=== PATIENT | female | born 1935 | race Caucasian/White ===

== ENCOUNTER 2017-03-14 22:10 | Emergency (ER) | payer MEDICARE ==
[2017-03-14] MEDS ORDERED: NS 0.9% 1000 ML* 1,500 ML IV ONE (23:35)
[2017-03-15 00:46] LABS: Hematocrit 39 % (35-47); Mean Corpuscular HGB Conc 33 g/dl (31-36); Mean Corpuscular Hemoglobin 30 pg (27-31); Mean Corpuscular Volume 92 fL (80-97); Mean Platelet Volume 9 um3 (7.4-10.4); Red Blood Count 4.29 10^6/ul (4.0-5.4); Red Cell Distribution Width 15 % (10.5-15); White Blood Count 8.9 10^3/ul (3.5-10.8)
[2017-03-15 00:52] LABS: Albumin 3.9 g/dL (3.2-5.2); BUN/Creatinine Ratio 27.1 (8-20); Calcium 9.1 mg/dL (8.6-10.3); EGFR African American 103.3 (>60); EGFR Non-African American 80.3 (>60); Globulin 3.1 g/dL (2-4); Potassium 3.6 mmol/L (3.5-5.0)
[2017-03-15 00:53] LABS: Troponin I 0.01 ng/mL (<0.04)
[2017-03-15 01:48] LABS: Urine Bacteria Absent (Absent); Urine Bilirubin Negative (Negative); Urine Glucose Negative (Negative); Urine Nitrite Negative (Negative)
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
[2017-03-15 03:25] VITALS: BP 175/77
--- NOTE | 2017-03-15 07:57 | RAD ---
INDICATION: Fever. COMPARISON: Comparison is made with a prior chest x-ray study from January 03, 2014. TECHNIQUE: A portable view of the chest was obtained. FINDINGS: There is moderate enlargement of cardiac silhouette which has increased slightly in size from the prior exam. The lungs are hyperinflated and clear. No pleural effusion is seen. IMPRESSION: 1. MODERATE ENLARGEMENT OF THE CARDIAC [place] SLIGHTLY INCREASED IN SIZE FROM THE PRIOR EXAM. 2. FINDINGS CONSISTENT WITH COPD, NO EVIDENCE FOR ACUTE FINDING.
== END 2017-03-15 03:25 | disposition home or self-care (01) ==
LOC: ED 22:10
DX: R50.9 Fever, unspecified (principal); R53.1 Weakness; R53.83 Other fatigue
CPT/HCPCS: 36415; 71010; 80053; 81003; 81015; 83605; 84484; 85025; 85610; 85730; 87040; 87086; 87502; 93005; 96360; 99284

== ENCOUNTER 2017-03-15 09:24 | Observation (INO) | payer MEDICARE ==
[2017-03-15] MEDS ORDERED: NS 0.9% 1000 ML* 1,000 ML IV ONE (09:51)
[2017-03-15] MEDS ORDERED: Acetaminophen TAB* 325 MG PO ONE (09:51)
[2017-03-15 10:07] LABS: Hematocrit 43 % (35-47); Hemoglobin 14.2 g/dl (12.0-16.0); Mean Corpuscular HGB Conc 33 g/dl (31-36); Mean Corpuscular Hemoglobin 30 pg (27-31); Mean Corpuscular Volume 91 fL (80-97); Mean Platelet Volume 8 um3 (7.4-10.4); Red Blood Count 4.68 10^6/ul (4.0-5.4); Red Cell Distribution Width 15 % (10.5-15); White Blood Count 7.3 10^3/ul (3.5-10.8)
[2017-03-15 10:23] LABS: Albumin 4.1 g/dL (3.2-5.2); BUN/Creatinine Ratio 17.9 (8-20); C Reactive Protein 22.13 mg/L (< 5.00); Calcium 9.3 mg/dL (8.6-10.3); EGFR African American 108.6 (>60); EGFR Non-African American 84.5 (>60); Globulin 3.3 g/dL (2-4); Potassium 3.4 mmol/L (3.5-5.0); Total Bilirubin 1.1 mg/dL (0.2-1.0); Total Protein 7.4 g/dL (6.4-8.9)
[2017-03-15 10:25] LABS: Troponin I 0.03 ng/mL (<0.04)
[2017-03-15 11:07] LABS: Erythrocyte Sed Rate 31 mm/Hr (0-40)
[2017-03-15 11:30] LABS: Urine Bacteria Absent (Absent); Urine Bilirubin Negative (Negative); Urine Glucose Negative (Negative); Urine Nitrite Negative (Negative)
[2017-03-15] MEDS ORDERED: NS 0.9% 1000 ML* 1,000 ML IV SCH (15:00)
[2017-03-15] MEDS ORDERED: Hydrocortisone 1% CREAM* 30 GM TUBE TOPICAL PRN (16:20)
[2017-03-15] MEDS ORDERED: Latanoprost 0.005%* 2.5 ml BTL BOTH EYES SCH (18:00)
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
[2017-03-15] MEDS: Heparin VIAL(*) 5000 UNITS/ML VIAL (FIVE THOUSAND) SUBCUT SCH (21:31)
[2017-03-16] MEDS ORDERED: amLODIPine TAB* 5 MG ONE (04:00)
[2017-03-16] MEDS: amLODIPine TAB* 5 MG PO SCH ×2 (04:05→09:24)
[2017-03-16] MEDS: Heparin VIAL(*) 5000 UNITS/ML VIAL (FIVE THOUSAND) SUBCUT SCH ×2 (05:12→15:01)
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
[2017-03-16] MEDS ORDERED: Acetaminophen TAB* 325 MG PO PRN (08:10)
[2017-03-16] MEDS ORDERED: Ascorbic Acid TAB* 500 MG PO SCH (09:00)
[2017-03-16 10:26] VITALS: BP 183/80
--- NOTE | 2017-03-16 15:30 | PN ---
Progress Note - Progress Note Note: Patient doing well this afternoon. She has had no fever and no complaints. She has ambulated with nursing staff independently. Reviewed with patient's partner and son. Discharge to [place].
--- NOTE | 2017-03-17 08:02 | DS ---
HOSPITAL MEDICINE DISCHARGE SUMMARY: DATE OF ADMISSION: 03/15/17 DATE OF DISCHARGE: 03/16/17 PRIMARY CARE PHYSICIAN: Dr. Kriss Renteria. ATTENDING PHYSICIAN: Dr. Navneet Lockhart *(dictation provided by Chelsy Romero NP ). PRIMARY DIAGNOSES: 1. Fever with suspected acute viral illness. 2. Hypertension. SECONDARY DIAGNOSES: 1. History of dementia. 2. Traumatic subarachnoid hemorrhage. 3. Status post cataract extraction. MEDICATIONS: New medications are amlodipine 2.5 mg p.o. daily. Otherwise she will take: 1. Citrucel 500 mg oral daily. 2. Folic acid 5 mg oral daily. 3. Vitamin C and E 1 capsule daily. 4. [place]-3 one capsule daily. 5. Vitamin D 1000 units oral daily. 6. Vitamin B12 1000 mcg oral daily. 7. Vitamin C 500 mg oral daily. 8. Lumigan 0.01% one drop in both eyes every morning. 9. Pantothenic acid 500 mg oral daily/ 10. Alpha-lipoic acid 200 mg oral daily. HOSPITAL COURSE: Ms. Fraser is an 81-year-old female with past medical history as mentioned above who presented to the hospital on 03/15/17 with concern for fever, fatigue, and generalized malaise. Please see the dictated H and P from Nicole Fernandez for complete details. In brief, the patient had 2 days ' of not feeling well with fever and malaise. In the emergency room she had normal urinalysis. She had no leukocytosis. Her ESR was normal. Flu swab was negative. Chest x-ray done the day before was normal, without acute abnormality. Ms. Fraser was observed in the hospital overnight. She was given intravenous fluids. She has had no further complaints. She has had no fever. No chills. She has been ambulating on the unit easily. She has had no nausea or abdominal pain. She has been eating and tolerating food well. I suspect that she had an acute viral illness as no other etiology was identified. She will be going back to [place] today. During this hospitalization Ms. Fraser's blood pressure was quite elevated. It was running 170s to 180s systolically. I have started her on a very low dose of amlodipine at 2.5 mg oral daily, given her age and frailty. She can follow up with Dr. Kriss Renteria regarding adjustment of this as needed. DISPOSITION: To [place]. DIET: Regular. ACTIVITY: As tolerated. FOLLOWUP PLANS: Please follow up with Dr. Renteria. The patient is instructed to call early next week for any appointment per routine after this hospitalization. TIME SPENT: Approximately 60 minutes were spent in discharge of this patient, more than half the time spent with the patient at the bedside reviewing the events leading up to this hospitalization, performing the physical examination, and reviewing the plan of care. CHELSY ROMERO NP CC: Dr. Kriss Renteria.* [id number]/[facility] #: [id number] MTDLauren
== END 2017-03-16 16:00 | disposition home or self-care (01) ==
LOC: ED 09:24 → MED 12:03
PROVIDERS: ADMIT Hospitalist; ATTEND Internal Medicine
DX: R50.9 Fever, unspecified (principal); R53.83 Other fatigue; R53.1 Weakness; R42 Dizziness and giddiness; R51 Headache; I10 Essential (primary) hypertension; E24.9 Cushing's syndrome, unspecified; F03.90 Unspecified dementia, unspecified severity, without behavioral disturbance, psychotic disturbance, mood disturbance, and anxiety; Z79.899 Other long term (current) drug therapy
CPT/HCPCS: 36415; 80053; 81003; 83605; 83880; 84484; 85025; 85384; 85610; 85652; 85730; 86140; 87040; 87077; 87150; 87205; 87502; 96360; 96361; 96372; 99284; A9270-GY; G0378; G8978-GP-CJ; G8979-GP-CI; J1644

== ENCOUNTER 2017-03-17 17:51 | Inpatient (IN) | payer MEDICARE ==
--- NOTE | 2017-03-15 22:38 | HP ---
HISTORY AND PHYSICAL: DATE OF ADMISSION: 03/15/17 PRIMARY CARE PROVIDER: Dr. Kriss Renteria. ATTENDING PHYSICIAN: Dr. Nba Gordon* (dictated by Nicole Cormier NP). CHIEF COMPLAINT: Fever, fatigue, and general weakness. HISTORY OF PRESENT ILLNESS: Ms. Fraser is an 81-year-old female with past medical history significant for traumatic subdural subarachnoid hematoma and dementia who presented to the emergency room with complaints of fever, fatigue, and generalized weakness. The patient was previously seen last night in the emergency room with similar complaints of fever, fatigue, generalized weakness, and increased flatus. She presented from [place] with her significant other. She had a chest x-ray showing no acute findings. She was noted to have a temperature of 100.9. Her labs were unremarkable. The patient was discharged to home after receiving IV fluids with recommendations to follow up with her primary care provider. The patient denies any chills, chest pain, cough, shortness of breath, nausea, vomiting, and diarrhea. The patient reports having dizziness with dancing earlier in the week. She also reports new urinary urgency with some incontinence. The patient's significant other reports that over the last several days, she has had a rash on her back that has improved after using a moisturizer. According to the patient's significant other, she again had a fever and feeling unwell and weak this morning, so he decided to bring her back to the emergency room for further evaluation. While in the emergency room, the patient received normal saline and Tylenol. She was noted to have a temperature of 101. The hospitalists were asked to evaluate the patient for admission. PAST MEDICAL HISTORY: 1. Dementia. 2. Traumatic subarachnoid hemorrhage. 3. Back injury as a child. PAST SURGICAL HISTORY: 1. Status post hysterectomy. 2. Status post L5 coccyx laminectomy. 3. Status post cataract extraction. HOME MEDICATIONS: Include: 1. Citrucel 500 mg oral daily. 2. Folic acid 5 mg oral daily. 3. Vitamin C and E 1 capsule oral daily. 4. [place]-3 1 capsule oral daily. 5. Vitamin D 1000 units oral daily. 6. Vitamin B12 1000 mcg oral daily. 7. Vitamin C 500 mg oral daily. 8. Lumigan 0.01% 1 drop to both eyes every morning. 9. Pantothenic acid 500 mg oral daily. 10. Alpha-lipoic acid 200 mg oral daily. ALLERGIES: The patient is gluten intolerant. FAMILY HISTORY: The patient denies any family history of coronary artery disease, diabetes mellitus. The patient's son has a history of [place]. SOCIAL HISTORY: The patient denies tobacco, alcohol, or recreational drug use. She lives at [place] in the independent apartment with her significant other. Her significant other, Tu Banks, will be her surrogate decision maker in the event she is unable to make decisions for herself. REVIEW OF SYSTEMS: I performed a 14-point review of systems. All the pertinent positives and negatives are mentioned in the history of present illness. The remaining review of systems are negative. PHYSICAL EXAMINATION GENERAL APPEARANCE: The patient is alert, pleasant, appears to be in no acute distress. VITAL SIGNS: Temperature 101, heart rate 70, respiratory rate 17, O2 sat 95% on room air, blood pressure 136/70. HEENT: Normocephalic, atraumatic. Pupils are equal and reactive to light. Extraocular movements are intact. RESPIRATORY: There is no accessory muscle use and the lungs are clear to auscultation bilaterally. CARDIOVASCULAR: Regular rate and rhythm. S1, S2 present. There are no murmurs , rubs, or gallops heard. ABDOMEN: Soft, nontender, nondistended. There are bowel sounds present x4. EXTREMITIES: There is no lower extremity edema. DP and PT pulses are 2+ and symmetric. MUSCULOSKELETAL: There is no clubbing or cyanosis noted. The patient exhibits good strength in all extremities. NEUROLOGICAL: The patient is alert and oriented to person and place, although she is forgetful and has some mild confusion. Cranial nerves II through XII are grossly intact. PSYCHOLOGICAL: The patient is calm and cooperative. SKIN: The patient has a red raised rash on her right elbow and back in addition to her left upper arm. DIAGNOSTIC STUDIES/LABORATORY DATA: Sodium 135, potassium 3.5, chloride 101, CO2 26, BUN 12, creatinine 0.67, glucose 118. INR 1.12, fibrinogen 416. CRP 22.13, BNP 246, ESR 31. Influenza A and B negative. White blood cell count 7.3 , hemoglobin 14.2, hematocrit 43, and platelet count 144. Urinalysis is significant for ketones 1+, blood 1+, and rbc's 1+. IMPRESSION: Ms. Fraser is an 81-year-old female with past medical history significant for dementia and traumatic subarachnoid hemorrhage who presents to the emergency room with complaints of fever and generalized weakness. She will be admitted for fever and weakness. ASSESSMENT AND PLAN: 1. Weakness. The patient has no focal weakness. I suspect her weakness is related to a viral illness. We will have Physical Therapy evaluate her. 2. Fever. Unclear etiology. The patient does not have leukocytosis. I suspect this is related to a viral illness. We will give her some IV hydration and supportive care. 3. Fluids, electrolytes, and nutrition. The patient will be on a gluten-free diet. 4. Code status. Full code. 5. DVT prophylaxis. She is a high risk and will be on subcu heparin. 6. Disposition. The patient will be in observation. TIME SPENT: The time for this admission was 60 minutes, greater than half of the time was spent [id number] with the patient and significant other discussing medications, past medical history, and the events leading up to her arrival today and performing a physical examination. The case has been reviewed with the attending, Dr. Gordon, who agrees with the plan of care. Reviewed by SHANNON PADILLA 03/16/17 1712 CC: Dr. Kriss Renteria * [id number]/[facility] #: [id number] MTDLauren
[2017-03-17] MEDS ORDERED: Acetaminophen TAB* 325 MG PO ONE (19:13)
[2017-03-17 19:15] LABS: Hematocrit 41 % (35-47); Hemoglobin 13.6 g/dl (12.0-16.0); Mean Corpuscular HGB Conc 33 g/dl (31-36); Mean Corpuscular Hemoglobin 31 pg (27-31); Mean Corpuscular Volume 92 fL (80-97); Mean Platelet Volume 9 um3 (7.4-10.4); Red Blood Count 4.46 10^6/ul (4.0-5.4); Red Cell Distribution Width 15 % (10.5-15); White Blood Count 8.7 10^3/ul (3.5-10.8)
[2017-03-17 19:26] LABS: Albumin 3.8 g/dL (3.2-5.2); C Reactive Protein 22.38 mg/L (< 5.00); Calcium 9.1 mg/dL (8.6-10.3); EGFR African American 96.9 (>60); EGFR Non-African American 75.3 (>60); Globulin 3.5 g/dL (2-4); Potassium 3.3 mmol/L (3.5-5.0); Total Bilirubin 0.6 mg/dL (0.2-1.0); Total Protein 7.3 g/dL (6.4-8.9)
[2017-03-17 19:29] LABS: Troponin I 0.01 ng/mL (<0.04)
--- NOTE | 2017-03-17 20:10 | RAD ---
INDICATION: Fever COMPARISON: March 14, 2017 TECHNIQUE: PA and lateral views were obtained. FINDINGS: Bones/Soft Tissues: There are no acute bony findings. Cardiomediastinal: The cardiac silhouette is enlarged, unchanged. Lungs: There are no focal infiltrates. There is mild interstitial prominence suggesting mild chronic interstitial congestion. Pleura: There are no pleural effusions. Other: None IMPRESSION: ENLARGED CARDIAC S[place]ETTE AND MILD DIFFUSE INTERSTITIAL PROMINENCE CONSISTENT WITH MILD INTERSTITIAL CONGESTION. NO ACUTE FINDINGS.
[2017-03-17 22:09] LABS: Urine Bacteria Absent (Absent); Urine Bilirubin Negative (Negative); Urine Glucose Negative (Negative); Urine Nitrite Negative (Negative)
[2017-03-17] MEDS ORDERED: Potassium Chloride LIQUID* 20 MEQ PACKET PO ONE (22:22)
[2017-03-17] MEDS ORDERED: NS 0.9% 1000 ML* 1,000 ML IV ONE (22:42)
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
[2017-03-17] MEDS: NS 0.9% 1000 ML* 1,000 ML IV SCH (23:33)
[2017-03-17] MEDS: Amoxicillin/Clavulanate TAB* 500 MG PO SCH (23:33)
[2017-03-17] MEDS: Acetaminophen TAB* 325 MG PO PRN (23:33)
--- NOTE | 2017-03-18 00:33 | HP ---
HISTORY AND PHYSICAL: DATE OF ADMISSION: 03/17/17 PRIMARY CARE PROVIDER: Dr. Kriss Renteria. CHIEF COMPLAINT: Fever. HISTORY OF PRESENT ILLNESS: Ms. Fraser is an 81-year-old female who was recently admitted from 03/15/17 through 03/16/17 with what felt to be an acute viral illness with resultant fever. The patient was discharged home feeling improved on 03/16/17 stronger and afebrile. On the day of readmission, 03/17/17 , the patient was noted to have increasing fevers as well as was noted to have rigors. The patient was brought back to the emergency room for evaluation. The patient herself has really unable to provide any meaningful history. Her partner is not present at the time of my evaluation though her son and his girlfriend are present for the evaluation. The patient really is unable to tell me if she has been having any significant cough or sputum production. The only thing that she has been able to states that her back has been itchy intermittently over the last week. She also complains of slight frontal headache. PAST MEDICAL HISTORY: 1. Dementia. 2. History of traumatic subarachnoid hemorrhage. PAST SURGICAL HISTORY: 1. Hysterectomy. 2. L5 coccyx laminectomy. 3. Cataract extraction. MEDICATIONS: 1. Citrucel 500 mg p.o. daily. 2. Folic acid 5 mg p.o. daily. 3. Vitamin C and D 1 capsule p.o. daily. 4. [place]-3 one capsule p.o. daily. 5. Vitamin D 1000 units p.o. daily. 6. Vitamin B12 1000 mcg p.o. daily. 7. Vitamin C 500 mg p.o. daily. 8. Lumigan 0.01% 1 drop to both eyes q.a.m. 9. Pantothenic acid 500 mg p.o. daily. 10. [place] lipoic acid 200 mg p.o. daily. 11. Amlodipine 2.5 mg p.o. daily. ALLERGIES: GLUTEN. FAMILY HISTORY: The patient denies any family history of CAD or diabetes. The patient's son has Waldenstrom macroglobulinemia. SOCIAL HISTORY: The patient is a nonsmoker. She does not drink alcohol. She lives at [place] in an independent apartment with her significant other, Tu. The patient previously indicated that her partner, Tu, would be her surrogate decision maker. REVIEW OF SYSTEMS: A complete 14-point review of systems is obtained. Pertinent positives and negatives are as per HPI and again, the patient is difficult to obtain an accurate history from physical exam. PHYSICAL EXAMINATION GENERAL: The patient is a well-developed, elderly thin female, sitting in the stretcher, in no acute distress. VITAL SIGNS: Blood pressure 184/95, pulse 103, respirations 29, temp initially recorded at 107.3 temporal followed by 104.1 rectally and 101.3 temporally. O2 sat is 93% on room air. HEENT: Pupils are equal. They are round. There is evidence of prior left cataract extraction. Right is not as clear. Extraocular muscles are intact. Oropharynx is clear. Oral mucosa is slightly dry. NECK: There is no submandibular, cervical or supraclavicular adenopathy. Thyroid is not enlarged. No thyroid nodules are noted. PULMONARY: There are coarse crackles at the right base; otherwise, the lungs are clear to auscultation. CARDIAC: Normal S1, S2. Regular rate and rhythm. The patient does have a 3/6 systolic murmur heard best at the right upper sternal border. ABDOMEN: Bowel sounds are present. Abdomen is soft, nontender, nondistended. MUSCULOSKELETAL: There is no cyanosis, clubbing of the digits. There is full active range of motion of all 4 extremities. NEUROLOGIC: Cranial nerves II through XII are grossly intact. Sensation is intact to light touch throughout. Strength is 5/5 and symmetric in upper and lower extremities bilaterally. PSYCH: The patient is alert. She is pleasantly confused. SKIN: Warm and dry. There are no rashes. DIAGNOSTIC STUDIES/LABORATORY DATA: WBC 8.7, hemoglobin 13.6, hematocrit 41, platelets 180, neutrophils 90%. INR 1.08. Sodium 137, potassium 3.3, chloride 100, CO2 28, BUN 20, creatinine 0.74, glucose 113, lactic acid 1.5, calcium 9.1. Bilirubin 0.6, AST 27, ALT 19, alk phos 52, troponin 0.01. CRP 22.38, albumin 3.8. Urinalysis reveals specific gravity of 1.006, trace ketones, trace leukocyte esterase and otherwise negative. Chest x-ray reveals enlarged cardiac silhouette and mild diffuse interstitial prominence consistent with mild interstitial congestion without any acute findings. ASSESSMENT AND PLAN: Ms. Fraser is an 81-year-old female recently hospitalized from 03/15/17 to 03/16/17 where she was diagnosed with an acute viral illness who presents to the emergency room with persistent fever and what sound to be rigors. 1. Fevers and rigors. The etiology of the patient's fevers is not completely clear. She still does not have an elevated white blood cell count nor does she give history of anything to point in direction of the source of infection. However on exam today, the patient does have right lower lobe crackles. Her chest x-ray does not clearly show an infiltrate. However, given the fever and the crackles on exam, I will go ahead and start Augmentin 500 mg p.o. twice daily for a possible community-acquired pneumonia. The patient's fever curve will be monitored as well as symptoms. The patient does complain of slight headache and she is unable to touch her chin to her chest. However, my suspicion for meningitis is very low. The patient is confused at this time though her son states that her level of confusion currently is at her baseline. If the patient has any deterioration such as worsened headaches or if she starts to look sicker (the patient currently looks relatively well), lumbar puncture should be considered. We will await blood culture results and additional urine culture. 2. Hypertension. The patient's blood pressure is uncontrolled at this point. She was started on amlodipine during her last hospitalization; however, she was not able to get those medications filled, therefore did not take it today. She will be restarted back on amlodipine 2.5 mg p.o. daily. 3. Dementia. Continue support care. 4. DVT prophylaxis. According to the Adult Thrombosis Prophylaxis Risk Factor Assessment Guide, the patient has a total risk factor score of 3 making her high risk. She will be placed on heparin 5000 units subcutaneous q.8 hours. 5. Code status is full. TIME SPENT: 65 minutes were spent admitting this patient. CC: Dr. Kriss Renteria* [id number]/[facility] #: [id number] MTDD
[2017-03-18] MEDS: Acetaminophen TAB* 325 MG PO PRN ×2 (04:26→11:24)
[2017-03-18] MEDS: Heparin VIAL(*) 5000 UNITS/ML VIAL (FIVE THOUSAND) SUBCUT SCH ×3 (05:43→21:39)
[2017-03-18] MEDS: Amoxicillin/Clavulanate TAB* 500 MG PO SCH ×2 (08:23→21:38)
[2017-03-18] MEDS ORDERED: amLODIPine TAB* 5 MG PO SCH (09:00)
--- NOTE | 2017-03-18 09:29 | RAD ---
HISTORY: Fever, right lower lobe pneumonia COMPARISONS: March 17, 2017 VIEWS: 2: Frontal dual-energy and lateral views of the chest. FINDINGS: CARDIOMEDIASTINAL SILHOUETTE: The cardiac silhouette is enlarged. The cardiomediastinal silhouette is otherwise normal. RC: The rc are normal. PLEURA: The costophrenic angles are sharp. No pleural abnormalities are noted. LUNG PARENCHYMA: There is mild prominence of the central pulmonary vasculature. Bilateral nipple shadows are noted.. ABDOMEN: The upper abdomen is clear. There is no subphrenic gas. BONES AND SOFT TISSUES: No bone or soft tissue abnormalities are noted. OTHER: None. IMPRESSION: CARDIOMEGALY WITH MILD PULMONARY VASCULAR CONGESTION
[2017-03-18 10:47] LABS: Hematocrit 38 % (35-47); Hemoglobin 12.5 g/dl (12.0-16.0); Mean Corpuscular HGB Conc 33 g/dl (31-36); Mean Corpuscular Hemoglobin 30 pg (27-31); Mean Corpuscular Volume 91 fL (80-97); Mean Platelet Volume 8 um3 (7.4-10.4); Red Blood Count 4.16 10^6/ul (4.0-5.4); Red Cell Distribution Width 15 % (10.5-15)
[2017-03-18 11:04] LABS: BUN/Creatinine Ratio 19.4 (8-20); Calcium 8.6 mg/dL (8.6-10.3); EGFR Non-African American 77.7 (>60); Potassium 3.7 mmol/L (3.5-5.0)
[2017-03-18] MEDS: NS 0.9% 1000 ML* 1,000 ML IV SCH (13:51)
[2017-03-18] MEDS ORDERED: diPHENhydraMINE PO* 50 MG PO PRN (13:51)
--- NOTE | 2017-03-18 14:41 | PN ---
Subjective Date of Service: 03/18/17 Interval History: This is an 81 yo female with dementia who presented with fever. Patient was discharged just a few days ago after treatment for what was presumed to be an acute viral illness who developed new fevers shortly after returning home. In the ER temperature read as high as 107F. No obvious source of infection, but a few crackles appreciated on initial lung exam so she was empirically treated for a PNA and started on Augmentin. Patient denies cough or SOB. She has been afebrile since admission. She offers no focal complaints apart from a rash. The onset of rash is not entirely clear but seems to have been present on admission. She is gluten intolerant and states the rash is similar to when she has been exposed to gluten in the past. Objective Active Medications: Acetaminophen (Tylenol Tab*) 650 mg PO Q4H PRN PRN Reason: pain/fever Last Admin: 03/18/17 11:24 Dose: 650 mg Amlodipine Besylate (Norvasc Tab*) 2.5 mg PO DAILY [facility] Last Admin: 03/18/17 08:23 Dose: 2.5 mg Amoxicillin/Clavulanate Potassium (Augmentin Tab*) 500 mg PO BID [facility] Last Admin: 03/18/17 08:23 Dose: 500 mg Diphenhydramine HCl (Benadryl Po*) 50 mg PO Q6H PRN PRN Reason: ITCHING Last Admin: 03/18/17 14:15 Dose: 50 mg Heparin Sodium (Porcine) (Heparin Vial(*)) 5,000 units SUBCUT Q8HR [facility] Last Admin: 03/18/17 13:51 Dose: 5,000 units Sodium Chloride (Ns 0.9% 1000 Ml*) 1,000 mls @ 75 mls/hr IV PER RATE [facility] Last Admin: 03/18/17 13:51 Dose: 75 mls/hr Latanoprost (Xalatan 0.005%*) 1 drop BOTH EYES QPM [facility] PRN Reason: Protocol Vital Signs: Temp Pulse Resp BP Pulse Ox 98.9 F 87 14 146/75 93 03/18/17 07:29 03/18/17 07:29 03/18/17 14:15 03/18/17 07:29 03/18/17 08:00 Oxygen Devices in Use Now: None Appearance: Alert, confused. NAD. Accompanied by her . Respiratory: Symmetrical Chest Expansion and Respiratory Effort, - - few crackles at lung bases Cardiovascular: RRR, - - faint murmur appreciated Extremities: No Edema Skin: - - raised, pruritic somewhat macular erythematous rash covering most of her body Neurological: - - alert, but confused Result Diagrams: 03/18/17 10:14 03/18/17 10:14 Additional Lab and Data: . Diagnostic Imaging: CXR - cardiomegaly with mild interstitial edema Repeat CXR - unchanged Assess/Plan/Problems-Billing Assessment: This is an 81 yo female with dementia and hypertension who has been readmitted with high fevers of unclear origin - Patient Problems (1) Fever Comment: Temp measured up to 107F in the ER Etiology still not clear Patient still has no focal complaints Few crackles on exam, but bilateral and no consolidation on repeat CXR Blood cx from prior admission grew staph epi in one set of culture bottles, nothing in the other, likely representing a contaminant, urine culture was negative and repeat UA is largely unremarkable Plan to cont Augmentin as she is clinically improving Repeat blood cultures are pending (2) Rash Comment: Perhaps due to gluten Could consider drug rash related to Augmentin, but rash seems to have preceeded the Augmentin cont prn benadryl/APAP (3) Dementia Comment: No significant behavioral concerns Pleasantly confused (4) Hypertension Comment: Normotensive Cont home antihypertensives (5) Full code status (6) DVT prophylaxis Comment: Heparin SQ. Status and Disposition: Inpatient. Anticipate possible dc tomorrow.
[2017-03-18] MEDS ORDERED: Latanoprost 0.005%* 2.5 ml BTL BOTH EYES SCH (18:00)
[2017-03-19] MEDS ORDERED: amLODIPine TAB* 5 MG PO ONE (00:05)
[2017-03-19] MEDS: Heparin VIAL(*) 5000 UNITS/ML VIAL (FIVE THOUSAND) SUBCUT SCH (05:44)
[2017-03-19] MEDS: Acetaminophen TAB* 325 MG PO PRN (05:46)
[2017-03-19 07:38] VITALS: BP 153/64
[2017-03-19] MEDS ORDERED: amLODIPine TAB* 5 MG PO SCH (09:00)
[2017-03-19] MEDS: Amoxicillin/Clavulanate TAB* 500 MG PO SCH (09:50)
--- NOTE | 2017-03-19 13:12 | DS ---
DATE OF ADMISSION: 03/17/2017. DATE OF DISCHARGE: 03/19/2017. PRIMARY CARE PROVIDER: Dr. Kriss Renteria. DISCHARGING PROVIDER: LILIANA Bell. SUPERVISING PHYSICIAN: Dr. Lexie Verma* (dictated by LILIANA Bell). PRIMARY DISCHARGE DIAGNOSES: 1. Suspected pneumonia - febrile illness. 2. Rash - resolved, likely due to gluten exposure. SECONDARY DISCHARGE DIAGNOSES: 1. Dementia - mild to moderate without significant behavioral concerns. 2. Hypertension. DISCHARGE MEDICATIONS: 1. Augmentin 500 mg p.o. b.i.d. times 5 additional days. 2. Lumigan one drop in both eyes in the evening. 3. Vitamin D3 1000 units p.o. daily. 4. Vitamin B12 1000 mcg p.o. daily. 5. Folic acid 5 mg p.o. daily. 6. Citrucel 500 mg p.o. daily. 7. [place] 3 fatty acids one capsule p.o. daily. 8. Amlodipine 5 mg p.o. daily. Medication changes: 1. Augmentin times 5 days. 2. Increase Amlodipine to 5 mg daily. HOSPITAL IMAGIN. Chest x-ray, 03/17/2017, demonstrates mild cardiomegaly and interstitial congestion. No other acute findings. 2. Chest x-ray, , shows an essentially unchanged chest x-ray without obvious consolidation. HOSPITAL COURSE: This is an 81-year-old female with a history of dementia and hypertension who was admitted several days ago with a febrile illness that was presumed to be viral in origin. The patient had a brief observation stay and was subsequently discharged to home. Labs at that time of that admission were largely unremarkable without associated leukocytosis and fever is resolved with IV fluids and additional supportive care. The patient's fever resumed within 24 hours of discharge and she returned to the emergency department for further evaluation. Initial temperature measured as high as 107 degrees Fahrenheit in the emergency department. She still did not have the significant leukocytosis and CRP was only mildly elevated at 22. The remainder of her labs were largely unremarkable. Her urine analysis was positive for trace leuk esterase. Urine culture from her last hospitalization did not grow anything and the patient does not have any abdominal complaints. A chest x-ray showed what looked like cardiomegaly and some mild interstitial edema, but no acute consolidation. Due to the severity of her fever, the patient was empirically treated with Augmentin. There were a few crackles in the right lower lobe on initial lung exam and so she was treated for presumed pneumonia based on that exam finding. The patient remained afebrile throughout her hospital stay and repeat labs remained unremarkable. The patient did develop a rash during her hospital stay, although the exact timing of this was unclear. Her thought that the rash proceeded her hospital stay with the patient's thought that it occurred during. Both of them have some difficulty with their timelines. The rash resolved with Benadryl and she does have a reported rash with prior gluten exposure which may have explained it and seemed to be less likely drug-related as she continued to tolerate the Augmentin. The patient was noted to be rather hypertensive, at least intermittently throughout her hospital stay and the recommendation was to increase her Amlodipine to 5 mg daily at the time of discharge. DISPOSITION AND FOLLOW-UP PLAN: The patient is being discharged to home which is independent living at [facility] where she resides with her . Recommend Augmentin for an additional five days, as well as increase in her Amlodipine as described above. Recommend follow-up with the patient's primary care provider within the next week regarding these recent hospitalizations. LILIANA BELL CC: Dr. Kriss Renteria* [id number]/[facility] #: [id number] MTDD
== END 2017-03-19 13:50 | disposition home or self-care (01) | DRG 195 ==
LOC: ED 17:51 → MED 21:28 → OBSVTOIN 03-18 14:46
PROVIDERS: ADMIT Hospitalist; ATTEND Internal Medicine
DX: J18.9 Pneumonia, unspecified organism (principal); F03.90 Unspecified dementia, unspecified severity, without behavioral disturbance, psychotic disturbance, mood disturbance, and anxiety; L25.4 Unspecified contact dermatitis due to food in contact with skin; I10 Essential (primary) hypertension; Z79.899 Other long term (current) drug therapy; Z91.018 Allergy to other foods
CPT/HCPCS: 36415; 71020; 80048; 80053; 81003; 81015; 83605; 84484; 85025; 85610; 85730; 86140; 87040; 87086; A9270-GY; J1644

== ENCOUNTER 2017-03-20 16:37 | Inpatient (IN) | payer MEDICARE ==
[2017-03-20] MEDS ORDERED: NS 0.9% 1000 ML* 1,500 ML IV ONE (16:59)
[2017-03-20 17:20] LABS: Hematocrit 40 % (35-47); Hemoglobin 13.2 g/dl (12.0-16.0); Mean Corpuscular HGB Conc 33 g/dl (31-36); Mean Corpuscular Hemoglobin 30 pg (27-31); Mean Corpuscular Volume 91 fL (80-97); Mean Platelet Volume 8 um3 (7.4-10.4); Red Blood Count 4.44 10^6/ul (4.0-5.4); Red Cell Distribution Width 15 % (10.5-15)
[2017-03-20 17:46] LABS: Albumin 3.8 g/dL (3.2-5.2); BUN/Creatinine Ratio 28.8 (8-20); C Reactive Protein 52.49 mg/L (< 5.00); Calcium 9.1 mg/dL (8.6-10.3); EGFR African American 98.4 (>60); EGFR Non-African American 76.5 (>60); Globulin 2.9 g/dL (2-4); Total Bilirubin 0.6 mg/dL (0.2-1.0); Total Protein 6.7 g/dL (6.4-8.9)
[2017-03-20] MEDS ORDERED: Ondansetron INJ* 2 MG/ML VIAL IV PRN (18:19)
[2017-03-20] MEDS ORDERED: NS 0.9% 1000 ML* 1,000 ML IV SCH (18:30)
--- NOTE | 2017-03-20 18:31 | RAD ---
INDICATION: Sepsis and fever COMPARISON: Chest x-ray dated March 18, 2017 TECHNIQUE: Single AP portable view of the chest was obtained. FINDINGS: Image quality is compromised due to the relative inferiority of a portable chest x-ray. Similar to the previous chest x-ray there is moderate to severe cardiomegaly. There is coarse calcification overlying the arch of the aorta. The lungs are hyperaerated in the AP view. Otherwise the lungs appear adequately aerated without lobar consolidation. The diaphragm and costophrenic angles are adequately defined in the AP view. Lucency seen over lying the right of midline lower thorax is consistent with hiatal hernia that was visible on the previous radiograph as well. Visualized bones are normal for the patient's age. IMPRESSION: Stable chronic findings described above include moderate to severe cardiomegaly and a likely large hiatal hernia.
[2017-03-20] MEDS ORDERED: TAZOBACTAM IVPB ONE ×3 (18:35→19:00)
[2017-03-20] MEDS ORDERED: NS 0.9% IVPB ONE ×3 (18:35→19:00)
[2017-03-20] MEDS ORDERED: PIPERACILLIN IVPB ONE ×3 (18:35→19:00)
[2017-03-20] MEDS ORDERED: Iohexol 350* (CONTRAST) 500 ML MDV IV ONE (18:37)
--- NOTE | 2017-03-20 18:41 | PN ---
Hospitalist Progress Note HOSPITALIST ADDENDUM Case reviewed and d/w Gerry FORD. Mrs. Fraser has been admitted to our facility earlier this week, went home on Augmentin for possible pneumonia and returns with recurrent fevers. Labs and CxR reviewed. Agree with current management.
[2017-03-20] MEDS: Acetaminophen TAB* 325 MG PO PRN ×2 (18:52→23:57)
[2017-03-20 18:58] LABS: Urine Bilirubin Negative (Negative); Urine Glucose Negative (Negative); Urine Nitrite Negative (Negative)
--- NOTE | 2017-03-20 20:22 | RAD ---
INDICATION: Chest pain and shortness of breath COMPARISON: None TECHNIQUE: Axial source images were acquired following the administration of 56 mL Omnipaque [address] angiographic technique. Coronal and sagittal reconstructed images were constructed and reviewed. FINDINGS: Evaluation is somewhat limited by respiratory motion artifact. There there are no filling defects in the pulmonary arteries to indicate acute pulmonary embolic disease. There are groundglass opacifications as well as mild centrilobular emphysematous changes. At the dependent lung bases there are hypoventilatory changes as well as pleural-based linear densities. The heart is greatly enlarged. There is a moderate to large pericardial effusion. Coarse calcification is seen at the coronary arteries and arch of the aorta. There is an enlarged right hilar lymph node measuring 1.5 cm in short access diameter. There is a mildly enlarged preaortic lymph node measuring 1 cm in short axis diameter. Mild degenerative changes of the thoracic spine include loss of intervertebral disc height. Coarse calcification of the descending thoracic aorta extends into the superior most visualized portion of the abdominal aorta. IMPRESSION: 1. No CT of evidence of pulmonary embolism. 2. Cardiomegaly with a moderate pericardial effusion. Diffuse groundglass densities in the lungs could be seen in the setting of cardiogenic pulmonary edema. 3. There is an enlarged right hilar lymph node as well as a top normal preaortic lymph node of uncertain chronicity or clinical significance. 4. Additional chronic and degenerative changes described in the body of the report.
[2017-03-20] MEDS: Enoxaparin(*) 40 MG/0.4 ML SYR SUBCUT SCH (21:16)
[2017-03-20] MEDS: Azithromycin IV(*) 500 MG in NS 0.9% 250 ML* 250 ML IVPB SCH (21:17)
[2017-03-20] MEDS: PIPERACILLIN IVPB SCH (23:57)
[2017-03-20] MEDS: NS 0.9% IVPB SCH (23:57)
[2017-03-20] MEDS: TAZOBACTAM IVPB SCH (23:57)
--- NOTE | 2017-03-21 00:15 | HP ---
ADMISSION HISTORY AND PHYSICAL: DATE OF ADMISSION: 03/20/17 PRIMARY CARE PROVIDER: Dr. Kriss Renteria. ADMITTING PROVIDER: LILIANA Bell. SUPERVISING PHYSICIAN: Ghislaine Bateman MD* (dictated by LILIANA Bell). CHIEF COMPLAINT: Fever and chills. HISTORY OF PRESENT ILLNESS: This is an 81-year-old female with a history of hypertension and mild to moderate dementia who was discharged for the second time in a week just yesterday after being treated for presumed pneumonia with Augmentin. The patient had been afebrile for a 48-hour period prior to leaving the hospital and was discharged with a prescription for Augmentin. The patient returned home and was reportedly feeling well yesterday evening and again this morning. After breakfast, she began to develop a little bit of an upset stomach and then this afternoon, fever and chills recurred. The patient's daughter picked up the prescription for the Augmentin and brought it to her home. She and her partner lives in an independent section [facility] and administer their medications independently. When her daughter returned this morning expecting to see 2 missing tablets, there were in fact 4 missing tablets and her /partner is unable to confirm whether she took the medication or whether there was some other incidental misuse of the Augmentin. The patient continues to not have a cough or complaints of shortness of breath. She has no other focal complaints apart from her occasional chills. During the patient's last 2 hospital stays, she did not have a significant leukocytosis but was spiking fevers up to at one point measured at 107 degrees Fahrenheit. She had some crackles on lung exam and was subsequently treated for a presumed pneumonia, although there was not a significant consolidation appreciated on chest x-ray. The patient denies any development of any rashes. No persistent abdominal pain , nausea, vomiting, or diarrhea. There is no other change since discharge. PAST MEDICAL HISTORY: 1. Hypertension. 2. Htnw-mv-dqonlcor dementia. 3. History of traumatic subarachnoid hemorrhage. PAST SURGICAL HISTORY: 1. Hysterectomy. 2. L5 coccyx laminectomy. 3. Cataract extraction. HOME MEDICATIONS: 1. Augmentin 500 mg p.o. b.i.d. 2. Vitamin C 500 mg p.o. daily. 3. Lumigan eye drops 1 drop in both eyes once daily. 4. Vitamin D3 1000 units p.o. daily. 5. Vitamin B12 1000 mcg p.o. daily. 6. Folic acid 500 mg p.o. daily. 7. Citrucel 500 mg p.o. daily. 8. Wheeler-3 fatty acids 1 capsule p.o. daily. 9. Vitamin C and E 1 capsule p.o. daily. 10. Amlodipine 5 mg p.o. daily. SOCIAL HISTORY: The patient lives in the [facility] with her significant other, Tu. No history of smoking and no regular alcohol consumption. REVIEW OF SYSTEMS: As noted above in HPI. Remainder of systems were reviewed and otherwise negative. PHYSICAL EXAMINATION GENERAL: This is a pleasant elderly female accompanied by her partner Tu as well as her son in no acute distress. VITAL SIGNS: Initial vitals are temperature 101.8 degrees Fahrenheit, pulse 110 beats per minute, respiratory rate 20 per minute, oxygen saturation 92% on room air, and blood pressure of 153/70 mmHg. The patient is noted to be hypoxic with oxygen saturation of 88% and maximum temperature in the emergency department reached 102.6 degrees Fahrenheit. HEENT: Mucous membranes appear to be moderately dry. Otherwise, head is normocephalic and atraumatic. RESPIRATORY: Upper lung rivera are clear. Both bases have fine crackles appreciated. CARDIOVASCULAR: Heart has a regular rate and rhythm without murmurs, rubs, or gallops but is noted to be tachycardic. ABDOMEN: Soft and nontender to palpation. EXTREMITIES: No edema. SKIN: Limited exam shows no concerning rashes or lesions. PSYCH: The patient is alert and seems to be at least oriented to self and place , but certainly not to time or situation. LABORATORY EVALUATION: CBC: White blood cell count 11,000, hemoglobin 13.2, platelet count 225,000. Differential shows primarily neutrophils, nearly 90%. Comprehensive metabolic panel is largely unremarkable. Sodium 140 mmol/L, potassium 4.0, bicarb 27, anion gap of 12, BUN 21, creatinine 0.73. Random glucose of 122. Lactic acid normal at 1.8. Transaminases and total bilirubin largely within normal limits. CRP of 52. Lipase normal at 46. IMAGING: Chest x-ray pending official radiology read, it appears largely clear with possible bibasilar infiltrate. ASSESSMENT AND PLAN: This is an 81-year-old female with history of hypertension and dementia and 2 recent hospital admissions for fever, treated for presumed pneumonia, who returns with recurrent fever. 1. Febrile illness - the patient was discharged with prescription for Augmentin , which is what she was receiving in the hospital and was afebrile for a period of 48 hours. She now returns febrile with leukocytosis, primarily neutrophils; increase in her CRP, which has nearly doubled since discharge. There is no obvious large consolidation on chest x-ray. She does have a few crackles bilaterally. She has no complaints whatsoever including cough or shortness of breath. She is; however, hypoxic and tachycardic at this time. A possibility that a PE may be contributing exists, but seems unlikely with the high temperatures that she has previously achieved. Despite this, a CTA of the chest has been ordered and is currently pending. This will also help to further define presence of the consolidation. Based on white cell differential, a viral illness seems less likely with primary neutrophilia, but certainly possible. She has had blood cultures on her 2 prior admissions as well as 2 urine cultures, all of which have been negative. We will continue to focus on possible respiratory pathogens and treat empirically with Zosyn and azithromycin with repeat blood cultures that have been drawn and are currently pending. The patient is not coughing, so inducing a sputum sample does not seem to be possible at this time. 2. Mild to moderate dementia - because of the patient's dementia and her partner also not entirely reliable in terms of a historian or as janitorial manager at this time, it is unclear whether she actually took the Augmentin that she has at home in the appropriate manner. This certainly confuses the situation and the fact that this is her third hospital admission in just more than a week necessitates looking at her home living situation as well. I think at least having home nursing services visiting for medication preparation and administration would be helpful or considering transitioning to the assisted living side of [place]. 3. Hypertension - the patient is hypertensive in the emergency department but she is also febrile. We will continue her amlodipine at previously prescribed dose of 5 mg daily. 4. Code status: The patient is full code. 5. Healthcare proxy is her partner, Tu. 6. DVT prophylaxis. The patient will be started on subcu Lovenox. 7. Disposition: The patient is being admitted to inpatient status with anticipated length of stay to be greater than 2 midnights. LILIANA BELL CC: Dr. Kriss Renteria* [id number]/[facility] #: [id number] GL[facility] COVE HOSPITALLauren
[2017-03-21 05:48] LABS: Hematocrit 36 % (35-47); Hemoglobin 11.6 g/dl (12.0-16.0); Mean Corpuscular HGB Conc 33 g/dl (31-36); Mean Corpuscular Hemoglobin 30 pg (27-31); Mean Corpuscular Volume 91 fL (80-97); Mean Platelet Volume 8 um3 (7.4-10.4); Red Blood Count 3.91 10^6/ul (4.0-5.4); Red Cell Distribution Width 15 % (10.5-15); White Blood Count 7.6 10^3/ul (3.5-10.8)
[2017-03-21 06:03] LABS: Calcium 8.3 mg/dL (8.6-10.3); EGFR African American 128.3 (>60); EGFR Non-African American 99.8 (>60); Potassium 3.2 mmol/L (3.5-5.0)
[2017-03-21 07:31] LABS: Magnesium 1.7 mg/dL (1.9-2.7)
[2017-03-21] MEDS: NS 0.9% IVPB SCH (08:42)
[2017-03-21] MEDS: TAZOBACTAM IVPB SCH (08:42)
[2017-03-21] MEDS: PIPERACILLIN IVPB SCH (08:42)
[2017-03-21] MEDS: amLODIPine TAB* 5 MG PO SCH (08:45)
--- NOTE | 2017-03-21 11:21 | ECHO ---
Patient: RUY WEBB [facility] Rec#: [id number] : 1935 Date: 03/21/2017 Age: 81y Height: 157.48 cm / 62.0 in Weight: 47.17 kg / 104.0 lbs Sex: F BSA: 1.45 Room#: 405 Admit Date#: 03/20/2017 Type: Inpatient Referring: Gerry Caputo Reading: Jeyson Infante MD Internet Consultant: Becca Parmar,KOMALCS,RDMS CC: Kriss Renteria Transthoracic Echocardiogram Indication: Pericardial effusion BP: 140/72 HR: 82 Rhythm: NSR Findings History: HTN, dementia, subarachnoid hemorrhage Technical Comments: The study quality is poor. The study is technically limited due to poor acoustic windows. Left Ventricle: The left ventricular chamber size is decreased. Moderate concentric left ventricular hypertrophy is observed. The left ventricle appears hyperdynamic. The estimated ejection fraction is 60-65%. There is no consistent Doppler evidence of clinically significant diastolic dysfunction. Left Atrium: The left atrial chamber size is normal. Right Ventricle: The right ventricular cavity size is normal. The right ventricular global systolic function is low normal. Right Atrium: The right atrium is mildly dilated. Mild right atrial inversion . Aortic Valve: The aortic valve structure is not well visualized. The aortic valve leaflets are moderately thickened. There is mild aortic regurgitation. There is mild to moderate aortic stenosis. The mean gradient of the aortic valve is 23.6 mmHg. The aortic valve area, by peak velocities, is calculated at 1.3 cm2. Mitral Valve: There is mitral annular calcification. There is a trace of mitral regurgitation. There is no evidence of mitral stenosis. Tricuspid Valve: The tricuspid valve leaflets are normal. There is mild to moderate tricuspid regurgitation. The tricuspid regurgitant jet is directed toward the septum. There is evidence of mild pulmonary hypertension. Pulmonic Valve: The pulmonic valve structure is not well visualized. Pericardium: A pericardial effusion is visualized.It appears small to moderate in size, predominantly anterior by the right atrium. There are no signs of significant hemodynamic compromise. Aorta: The ascending aorta is not well visualized. There is no dilatation of the aortic arch. The aortic root is normal in size. Pulmonary Artery: The main pulmonary artery is not well visualized. Venous: The inferior vena cava is dilated. There is less than 50% respiratory change in the inferior vena cava dimension. Conclusions Moderate concentric left ventricular hypertrophy is observed. The left ventricle appears hyperdynamic. The estimated ejection fraction is 60-65%. There is mild aortic regurgitation. There is mild to moderate aortic stenosis. The aortic valve area, by peak velocities, is calculated at 1.3 cm2. There is a trace of mitral regurgitation. The tricuspid regurgitant jet is directed toward the septum. There is evidence of mild pulmonary hypertension. There is a small to moderate pericardial effusion. There are no signs of significant hemodynamic compromise. No reports of prior studies offered for comparison. Measurements Name Value Normal Range RVIDd (AP) 2D 1.6 cm (0.9 - 2.6) RVDdMajor (2D) 3.2 cm (2.2 - 4.4) RAd ISD 4CH 5.2 cm (3.4 - 4.9) RA (A4C)W 5.1 cm (2.9 - 4.6) IVSd (2D) 1.4 cm (0.6 - 1) LVPWd (2D) 1.5 cm (0.6 - 1) LVIDd (2D) 3.2 cm (3.6 - 5.4) LVIDs (2D) 1.9 cm - LV FS (2D) 40 % (25 - 45) Aortic Annulus 2 cm (1.4 - 2.6) Ao root diameter (2D) 2.8 cm (2.1 - 3.5) Aortic arch 2.1 cm (1.8 - 3.4) LA dimension (AP) 2D 2.3 cm (2.3 - 3.8) LAd ISD 4CH 5 cm (2.9 - 5.3) LA ISD 4CH W 4.3 cm (2.5 - 4.5) Name Value Normal Range LA ESV SP 4CH (A/L) 43.39 ml - LA ESV SP 2CH (A/L) 46.47 ml - LA ESV BP (A/L) 48.66 ml - LA ESV BP (A/L) index 34 ml/m2 - LA ESV SP 4CH (MOD) 37.59 ml - LA ESV SP 2CH (MOD) 41.5 ml - Name Value Normal Range MV E-wave Vmax 0.6 m/sec - MV deceleration time 292 msec - MV A-wave Vmax 0.5 m/sec - MV E:A ratio 1.1 ratio - LV septal e' Vmax 0.06 m/sec - LV lateral e' Vmax 0.06 m/sec - LV E:e' septal ratio 10 ratio - LV E:e' lateral ratio 10 ratio - Name Value Normal Range AV Vmax 3.1 m/sec - AV VTI 66.4 cm - AV peak gradient 38 mmHg - AV mean gradient 23.6 mmHg - LVOT diameter 2 cm - LVOT Vmax 1.3 m/sec - LVOT VTI 27.4 cm - LVOT peak gradient 7 mmHg - LVOT mean gradient 2.9 mmHg - DOI (VTI) 0.4 ratio - SV LVOT 71.86 ml - AUREA (continuity Vmax) 1.3 cm2 - AUREA (continuity VTI) 1.3 cm2 - AR PHT 410.54 msec - AR peak gradient 64.47 mmHg - FANTA Vmax 0.6 m/sec - Name Value Normal Range TR Vmax 2.6 m/sec - TR peak gradient 27 mmHg - RAP 8 mmHg - RVSP 35 mmHg - IVC diameter 2.4 cm - Name Value Normal Range PV Vmax 0.5 m/sec - PV peak gradient 1 mmHg -
[2017-03-21] MEDS ORDERED: Magnesium Sulfate 2 GM IV* 2 GM/50 ML BAG IVPB ONE (13:26)
[2017-03-21 14:01] LABS: Troponin I 0.01 ng/mL (<0.04)
--- NOTE | 2017-03-21 14:25 | PN ---
Subjective Date of Service: 03/21/17 Interval History: Patient offers no acute complaints. She denies CP, SOB, abd pain, n/v. Occasional dry cough. Objective Active Medications: Acetaminophen (Tylenol Tab*) 650 mg PO Q4H PRN PRN Reason: FEVER/PAIN Last Admin: 03/20/17 23:57 Dose: 650 mg Amlodipine Besylate (Norvasc Tab*) 5 mg PO DAILY [facility] Last Admin: 03/21/17 08:45 Dose: 5 mg Bimatoprost (Lumigan 0.01% Ophth (Nf)) 1 drop BOTH EYES QPM ISHA PRN Reason: Protocol Enoxaparin Sodium (Lovenox(*)) 40 mg SUBCUT Q24H [facility] Last Admin: 03/20/17 21:16 Dose: 40 mg Azithromycin 500 mg/ Sodium (Chloride) 250 mls @ 250 mls/hr IVPB Q24H [facility] Last Admin: 03/20/17 21:17 Dose: 250 mls/hr Ceftriaxone Sodium 1,000 mg/ (Sodium Chloride) 50 mls @ 200 mls/hr IVPB Q24H [facility] Magnesium Sulfate (Magnesium Sulfate 2 Gm Iv*) 2 gm in 50 mls @ 50 mls/hr IVPB ONCE ONE Stop: 03/21/17 14:25 Last Admin: 03/21/17 14:01 Dose: 50 mls/hr Ondansetron HCl (Zofran Inj*) 4 mg IV Q4H PRN PRN Reason: NAUSEA/VOMITING Potassium Chloride (Klor Con Er Tab*) 20 meq PO BID [facility] Stop: 03/22/17 09:01 Vital Signs: Temp Pulse Resp BP Pulse Ox 97.9 F 76 16 140/67 92 03/21/17 11:22 03/21/17 11:22 03/21/17 11:22 03/21/17 11:22 03/21/17 11:22 Appearance: Well appearing elderly female in NAD. Accompanied by her and [id number] Respiratory: Symmetrical Chest Expansion and Respiratory Effort, Clear to Auscultation Cardiovascular: RRR, - - murmur 3/6 Abdominal: NL Sounds; No Tenderness; No Distention Extremities: No Edema Skin: No Rash or Ulcers Neurological: - - alert, mildly confused Result Diagrams: 03/21/17 05:12 03/21/17 05:12 Diagnostic Imaging: CTA chest - No PE, moderate sized pericardial effusion, diffuse ground glass opacities Echo - mod LVH, mild-mod , small to moderate pericardial effusion without hemodynamic compromise, unable to estimate percardial thickness Assess/Plan/Problems-Billing Assessment: This is an 81 yo female with mild to mod dementia and HTN who returns to the hospital in ~1 week with recurrent fevers. - Patient Problems (1) Fever Comment: Recurrent fevers It is unclear if patient was compliant with Augmentin since returning home She has been empirically treated for PNA No large consolidation on CT but diffuse ground glass opacities which may be due to a viral PNA or perhaps interstitial edema Pleural effusion noted on CT of unclear acuity Requested ID evaluation Cont Ceftriaxone/Azithromycin (2) Pericardial effusion Comment: Unlikely to represent acute pericarditis Patient has no associated EKG changes, no c/o CP, no change in troponin Perhaps due to associated viral syndrome Recommend repeat echo Saturday to re-evaluate size (3) Dementia Comment: No significant behavioral concerns Pleasantly confused (4) Hypertension Comment: Normotensive Cont amlodipine (5) Full code status (6) DVT prophylaxis Comment: SQ Lovenox Status and Disposition: Inpatient
[2017-03-21] MEDS: cefTRIAXone VIAL(*) 1,000 MG in NS 0.9% 50 ML* 50 ML IVPB SCH (16:25)
[2017-03-21] MEDS ORDERED: Latanoprost 0.005%* 2.5 ml BTL BOTH EYES SCH (18:00)
[2017-03-21] MEDS: Enoxaparin(*) 40 MG/0.4 ML SYR SUBCUT SCH (19:40)
[2017-03-21] MEDS: Potassium Chlor TAB* 20 MEQ TAB.ER PO SCH (20:27)
[2017-03-21] MEDS: Latanoprost 0.005%* 2.5 ml BTL BOTH EYES SCH (20:27)
[2017-03-21] MEDS: Azithromycin IV(*) 500 MG in NS 0.9% 250 ML* 250 ML IVPB SCH (20:28)
--- NOTE | 2017-03-21 21:49 | CONS ---
CONSULTATION REPORT: DATE OF CONSULTATION: 03/21/17 REQUESTING PHYSICIAN: LILIANA Hall. CONSULTING SERVICE: Infectious Disease. REASON FOR CONSULTATION: Fever. IMPRESSION: 1. Fever over the last 5 or 6 days. The only focal finding so far has been a chest CT done during this admission that showed ground-glass densities in the lungs, right hilar node, periaortic lymph node. She does not have cough or dyspnea. She is mildly hypoxic with fever and inflammatory process is a strong consideration in the lungs versus component of pulmonary edema. If it is infection, atypical bacterial organisms, viral, usual other community acquired bacterial pneumonia organisms or consideration. I had her sip water in the room , she did not cough while doing so, I think aspiration is less likely. Differential includes drug fever, she is not on any medications that would contribute, although she was on augmentin which can do it, and the other possibility would be an underlying abdominal abscess with a mild white blood cell count she had. We have not had evaluation of her abdominal organs. 2. Dementia. 3. Hypertension. 4. History of subarachnoid hemorrhage. 5. CT scan showed pericardial effusion, which was seen on the transthoracic echocardiogram, [id number] in size. She does not have any chest symptoms , but a pericarditis is a consideration as part of an overall viral infection and which could cause a lingering fever. I do not suspect a bacterial pericarditis. RECOMMENDATION: 1. Stop Zosyn. We will start ceftriaxone 1 g daily and continue azithromycin. Blood cultures are pending and that recently have been negative, urine culture is negative as well. 2. If she does not continue to improve, we will obtain a CT of the abdomen and pelvis without contrast. HISTORY OF PRESENT ILLNESS: This is an 81-year-old woman admitted with fevers. She cannot provide any of the history for illness given her dementia nor can her live-in partner as he is demented. Her son gave some information, the rest was reviewed from the medical records and discussion with LILIANA Hall. The patient had been to the ER on one occasion and eventually was admitted and this was her third admission since 03/15/17, each time for fever. Last admission, she was given antibiotics and discharged on Augmentin due to the concern for pneumonia and it is not clear that she actually took any Augmentin when she got home. She came back at this time, return of fever, her partner thinks she had some shaking chills. CT of the chest was obtained that showed diffuse ground-grass opacification and lymphadenopathy as described above. There was a cardiomegaly with a moderate pericardial effusion. The echocardiogram shows a fotbd-dw-lwqfpxsm effusion. She denies any chest pain. She denies fever today. Review of vitals shows she had a fever of 39 degrees yesterday afternoon and none since then. She was started on Zosyn. She has had no abdominal pain or diarrhea and denies pain at all in fact. Other studies have shown a procalcitonin of 1.8, white blood cell count of 11 yesterday, 7 today. Urinalysis trace ketones, otherwise negative. Urine culture negative. AST of 47, which had been normal in the previous admission. PAST MEDICAL HISTORY: 1. Hypertension. 2. Dementia. 3. Traumatic subarachnoid hemorrhage. 4. Status post hysterectomy. 5. Status post L5 coccygeal laminectomy. 6. Status post cataract extraction. ALLERGIES: GLUTEN. HOME MEDICATIONS: 1. Tylenol. 2. Enoxaparin. 3. Zosyn 3.375 g every 8 hours. 4. Azithromycin 500 mg daily. 5. Amlodipine. SOCIAL HISTORY: She lives at [place]. No travel or sick contact she knows of. FAMILY HISTORY: No recurrent infections or tuberculosis. REVIEW OF SYSTEMS: All negative except as noted above. PHYSICAL EXAMINATION: GENERAL: She is awake, not in distress. VITAL SIGNS: Temperature 37, heart rate 70, respiratory rate 16, blood pressure 150/70, O2 91% on room air. HEENT: There is no conjunctival hemorrhage. Oropharynx without lesions. NECK: Neck was supple without nuchal rigidity. LYMPH NODES: There is no cervical, supraclavicular, inguinal, axillary, or epitrochlear lymphadenopathy. RESPIRATORY: There are scattered rhonchi on the right base. No wheezes or rales. CARDIAC: Regular rate and rhythm without murmurs, rubs, or gallops. ABDOMEN: Soft, nontender, nondistended. There is no rebound. SKIN: There is no rash or splinter hemorrhages. MUSCULOSKELETAL: There is no spinal tenderness to palpation or joint synovitis. NEUROLOGIC: She is oriented x1. Follows commands. Asks some questions, answers some questions. DIAGNOSTIC STUDIES/LABORATORY DATA: White blood cell count 7, hemoglobin 11, platelet 212, creatinine is 0.5. Procalcitonin 1.8. Influenza PCR is negative. Please see impression and recommendations outlined above. Thanks for asking me to Ms. Fraser in consultation. [id number]/[facility] #: [id number] MTDD
[2017-03-22 05:59] LABS: BUN/Creatinine Ratio 18.6 (8-20); Calcium 8.7 mg/dL (8.6-10.3); EGFR African American 125.8 (>60); EGFR Non-African American 97.8 (>60); Potassium 3.5 mmol/L (3.5-5.0)
[2017-03-22] MEDS: amLODIPine TAB* 5 MG PO SCH (09:46)
[2017-03-22] MEDS: Potassium Chlor TAB* 20 MEQ TAB.ER PO SCH (09:46)
--- NOTE | 2017-03-22 11:25 | PN ---
Progress Note - Progress Note SOAP: Subjective: DOS: 03/22/17 CC: fever HPI: 81 year old woman with 3rd admission for fever and malaise, she can't provide history. Denies pain, fever, or diarrhea. She endorses a history of brain damage which persists. Objective: [] Vital Signs Temp 36.6 C 03/22/17 07:53 Pulse 84 03/22/17 07:53 Resp 16 03/22/17 07:53 BP 154/75 03/22/17 07:53 Pulse Ox 95 03/22/17 07:53 Intake & Output 03/21/17 03/22/17 03/22/17 18:59 06:59 18:59 Intake Total 1308 695 120 Balance 1308 695 120 Intake: IV Fluids 243 NS (0.9%) 243 IVPB 55 255 ABX - AZITHROMYCIN 255 Magnesium 55 Oral 1010 440 120 Other: Estimated Void Small # Voids 5 Gen:awake, no distress Neuro: Ox1 HEENT:PERRL, MMM Neck:supple Heart:RRR no murmur Lungs:Decr BS at bases no wheeze Abd:+BS NTND soft Skin: no rash MSK: no spine tenderness Laboratory Results - last 24 hr 03/21/17 03/22/17 05:12 05:03 Sodium 144 Potassium 3.5 Chloride 104 Carbon Dioxide 25 Anion Gap 15 H BUN 11 Creatinine 0.59 Est GFR ( Amer) 125.8 Est GFR (Non-Af Amer) 97.8 BUN/Creatinine Ratio 18.6 Glucose 91 Calcium 8.7 Magnesium 2.0 Troponin I 0.01 Assessment: 1. fever, with LLL infiltrate, suspect pneumonia 2. E.colli in urine, 10-25K colonies, clear UA, consider this a colonization 3. dementia Plan: 1.continue ceftriaxone/azithro day 3, can change to keflex and azithro 03/23 for 7 days total; if not continuing to improve, next step is CT A Discussed with Dr Renteria
--- NOTE | 2017-03-22 14:46 | PN ---
Subjective Date of Service: 03/22/17 Interval History: Seen and examined with daughter and Pt reports her left leg hurts which has been a chronic problem. No other complaints Objective Active Medications: Acetaminophen (Tylenol Tab*) 650 mg PO Q4H PRN PRN Reason: FEVER/PAIN Last Admin: 03/20/17 23:57 Dose: 650 mg Amlodipine Besylate (Norvasc Tab*) 5 mg PO DAILY [facility] Last Admin: 03/22/17 09:46 Dose: 5 mg Enoxaparin Sodium (Lovenox(*)) 40 mg SUBCUT Q24H [facility] Last Admin: 03/21/17 19:40 Dose: 40 mg Azithromycin 500 mg/ Sodium (Chloride) 250 mls @ 250 mls/hr IVPB Q24H [facility] Last Admin: 03/21/17 20:28 Dose: 250 mls/hr Ceftriaxone Sodium 1,000 mg/ (Sodium Chloride) 50 mls @ 200 mls/hr IVPB Q24H [facility] Last Admin: 03/21/17 16:25 Dose: 200 mls/hr Latanoprost (Xalatan 0.005%*) 1 drop BOTH EYES BEDTIME [facility] PRN Reason: Protocol Last Admin: 03/21/17 20:27 Dose: 1 drop Ondansetron HCl (Zofran Inj*) 4 mg IV Q4H PRN PRN Reason: NAUSEA/VOMITING Vital Signs 03/21/17 03/21/17 03/21/17 15:27 20:00 23:49 Temperature 98.2 F 98.0 F Pulse Rate 73 76 Respiratory 20 18 17 Rate Blood Pressure 136/66 154/63 (mmHg) O2 Sat by Pulse 92 92 Oximetry 03/22/17 03/22/17 03/22/17 00:00 03:13 07:53 Temperature 98.6 F 97.8 F Pulse Rate 83 84 Respiratory 18 16 Rate Blood Pressure 158/80 154/75 (mmHg) O2 Sat by Pulse 92 93 95 Oximetry 03/22/17 03/22/17 08:00 11:59 Temperature 97.3 F Pulse Rate 76 Respiratory 16 16 Rate Blood Pressure 157/77 (mmHg) O2 Sat by Pulse 96 Oximetry Oxygen Devices in Use Now: None Appearance: sitting in chair, nad Eyes: No Scleral Icterus, PERRLA Ears/Nose/Mouth/Throat: Clear Oropharnyx, Mucous Membranes Moist Neck: NL Appearance and Movements; NL JVP, Trachea Midline Respiratory: Symmetrical Chest Expansion and Respiratory Effort, Clear to Auscultation Cardiovascular: RRR Abdominal: NL Sounds; No Tenderness; No Distention, No Hepatosplenomegaly Lymphatic: No Cervical Adenopathy Extremities: No Edema, No Clubbing, Cyanosis Skin: No Rash or Ulcers Neurological: - - AOx1 to self Result Diagrams: 03/21/17 05:12 03/22/17 05:03 Microbiology and Other Data: Microbiology 03/20/17 18:34 Urine Culture - Final Urine Escherichia Coli Diagnostic Imaging: CTA chest - No PE, moderate sized pericardial effusion, diffuse ground glass opacities Echo - mod LVH, mild-mod , small to moderate pericardial effusion without hemodynamic compromise, unable to estimate percardial thickness Assess/Plan/Problems-Billing Assessment: 81 yo female h/o dementia and HTN with multople presentations over the last week with recurrent fevers now thought to have community acquired pneumonia - Patient Problems (1) Community acquired pneumonia Comment: dx based on CT and elevated inflammatory markers appreciate ID assistance CTX and azithro When ready for discharge can consider 2nd generation cephalosporin and azithro (2) Pericardial effusion Comment: Identified incidentally Patient has no associated EKG changes, no c/o CP, no change in troponin Repeat TTE ordered Saturday to re-evaluate size (3) Dementia Comment: No significant behavioral concerns Pleasantly confused additional VNS arranged for home on d/c (4) Hypertension Comment: Normotensive Cont amlodipine (5) DVT prophylaxis Comment: SQ Lovenox Status and Disposition: Inpatient for IV abx
[2017-03-22] MEDS: cefTRIAXone VIAL(*) 1,000 MG in NS 0.9% 50 ML* 50 ML IVPB SCH (17:30)
[2017-03-22] MEDS: Enoxaparin(*) 40 MG/0.4 ML SYR SUBCUT SCH (21:07)
[2017-03-22] MEDS: Latanoprost 0.005%* 2.5 ml BTL BOTH EYES SCH (21:07)
[2017-03-22] MEDS: Azithromycin IV(*) 500 MG in NS 0.9% 250 ML* 250 ML IVPB SCH (21:08)
[2017-03-23] MEDS: amLODIPine TAB* 5 MG PO SCH (09:03)
[2017-03-23] MEDS ORDERED: Artificial Tears* 15 ML BTL BOTH EYES PRN (10:14)
[2017-03-23 14:46] VITALS: BP 96/86
--- NOTE | 2017-03-23 23:54 | DS ---
CC: Dr. Kriss Renteria DISCHARGE SUMMARY: DATE OF ADMISSION: 03/20/17 DATE OF DISCHARGE: 03/23/17 PRIMARY CARE PHYSICIAN: Dr. Kriss Renteria. PRIMARY DIAGNOSIS: Community-acquired pneumonia. SECONDARY DIAGNOSES: 1. Pericardial effusion identified incidentally on CT scan. 2. Hypertension. 3. Moderate dementia. 4. History of traumatic subarachnoid hemorrhage. MEDICATIONS ON DISCHARGE: 1. Azithromycin 250 mg p.o. q. day for 2 days. 2. Cefuroxime 500 mg p.o. b.i.d. for 4 days. Above medicines are new. Continued medicines at home are: 1. Acetaminophen 650 mg p.o. q.4 hours p.r.n. pain. 2. Artificial tears 1 drop to both eyes q.2 hours p.r.n. 3. Lumigan eyedrops 1 drop both eyes every evening. 4. Amlodipine 5 mg p.o. q. day. 5. Alpha-lipoic acid 200 mg p.o. q. day. 6. Ascorbic acid 500 mg p.o. q. day. 7. Vitamin D 1000 International Units p.o. q. day. 8. Vitamin B12 1000 mcg p.o. q. day. 9. Folic acid 5 mg p.o. q. day. 10. Methylcellulose laxative 500 mg p.o. q. day. 11. [place]-3 fatty acids 1000 mg p.o. q. day. 12. Pantothenic acid 500 mg p.o. q. day. 13. Vitamin C and E combination tablet 500/400 one tab p.o. q. day. HOSPITAL COURSE: The patient is an 81-year-old woman with [id number] dementia, who has been admitted to this hospital on 3 occasions this month, on the , the , and the . Each time, the patient had fever with unclear source. There was chest x-ray that did not show clear infiltrate on the second admission. During this admission, the patient had a CT scan of the chest on March 20 that showed diffuse ground-glass densities in the lung as well as a right hilar lymph node. There is also a moderate pericardial effusion , which was found incidentally on the CAT scan. The patient had an EKG on the that was notable for sinus tachycardia, but no PA depression or any low- voltage issues consistent with pericardial effusion. The patient had a transthoracic echocardiogram that was completed on March 21, which showed moderate concentric LVH with ejection fraction of 60% to 65%, [id number] aortic stenosis, and a [id number] pericardial effusion. The patient defervesced on IV ceftriaxone and azithromycin for community-acquired pneumonia. On discharge, temperature was 36.7, pulse 86, respirations 12/min, oxygen saturation is 98% on room air. She is alert and conversant but confused. Her lungs are clear to auscultation and percussion bilaterally. Heart has regular rate and rhythm with 2/6 systolic murmur radiating to the carotids, most notable at the right upper sternal border. DISPOSITION: To home at [place] where she lives with her partner. ACTIVITY LEVEL: To walk with support of her partner, she declines walker or cane. DISCHARGE INSTRUCTIONS: She is to see the primary care doctor within a week of discharge. Suggestion would be to repeat echocardiogram to check for worsening of pericardial effusion. If the patient has recurrent fevers, referral to Infectious Disease would be indicated as she may have an atypical pulmonary infection that is causing recurrent fevers and the ground-glass appearance of the lung as well as adenopathy mentioned above. Please see H and P for full details of this complex medical admission. TIME SPENT: Forty minutes was spent doing the discharge process with this patient and talking to the patient and her partner. [id number]/CPS #: [id number] ANGELO
== END 2017-03-23 15:45 | disposition home health service (06) | DRG 194 ==
LOC: ED 16:37 → MED 18:19
PROVIDERS: ADMIT Internal Medicine; ATTEND Internal Medicine
DX: J18.9 Pneumonia, unspecified organism (principal); I31.3 Pericardial effusion (noninflammatory); J90 Pleural effusion, not elsewhere classified; F03.90 Unspecified dementia, unspecified severity, without behavioral disturbance, psychotic disturbance, mood disturbance, and anxiety; I10 Essential (primary) hypertension; R09.02 Hypoxemia; I35.0 Nonrheumatic aortic (valve) stenosis; Z22.39 Carrier of other specified bacterial diseases; Z90.710 Acquired absence of both cervix and uterus; Z98.49 Cataract extraction status, unspecified eye
CPT/HCPCS: 36415; 71010; 71275; 80048; 80053; 81003; 83605; 83690; 83735; 84145; 84484; 85025; 86140; 87040; 87077; 87086; 87186; 93005; 93306; A9270-GY; J0456; J0696; J1650; J2543; Q9967

== ENCOUNTER 2017-04-30 08:59 | Emergency (ER) | payer MEDICARE ==
[2017-04-30 09:06] VITALS: BP 177/87
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
== END 2017-04-30 09:43 | disposition home or self-care (01) ==
LOC: ED 08:59
DX: M79.605 Pain in left leg (principal)
CPT/HCPCS: 99281

== ENCOUNTER → 2017-05-21 08:07 | Emergency (ER) | payer MEDICARE ==
[~2017-05-21 08:07] MED LIST: Ibuprofen TAB* 600 MG PO ONE
[2017-05-21 10:26] VITALS: BP 176/90
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
== END | disposition home or self-care (01) ==
LOC: ED 08:07
DX: M79.605 Pain in left leg (principal); M79.604 Pain in right leg; F03.90 Unspecified dementia, unspecified severity, without behavioral disturbance, psychotic disturbance, mood disturbance, and anxiety; F41.9 Anxiety disorder, unspecified; F32.9 Major depressive disorder, single episode, unspecified
CPT/HCPCS: 99282; A9270-GY

== ENCOUNTER 2017-06-18 15:30 | Emergency (ER) | payer MEDICARE ==
[2017-06-18 16:29] VITALS: BP 138/63
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
== END 2017-06-18 18:54 | disposition home or self-care (01) ==
LOC: UCEAST 15:30
DX: H61.23 Impacted cerumen, bilateral (principal); Z90.710 Acquired absence of both cervix and uterus
CPT/HCPCS: 99213; G0463